=== PATIENT | female | born 1985 | race Caucasian/White ===

== ENCOUNTER 2016-10-08 04:51 | Emergency (ER) | payer MEDICAID ==
[~2016-10-08] VITALS: Ht 165.1 cm; Wt 80.0 kg
[~2016-10-08 04:51] MED LIST: CYCL-259 PO; ECHI500C PO; HYDR-3241 PO; IBUP-1221 PO; LAMO200T PO; LORA1TAB PO; ZOLP10TA5 PO
[2016-10-08 04:55] VITALS: BP 141/85
== END 2016-10-08 07:55 | disposition left against medical advice (07) ==
LOC: ED 05:17
DX: S63.521A Sprain of radiocarpal joint of right wrist, initial encounter (principal); Z88.2 Allergy status to sulfonamides; X50.9XXA Other and unspecified overexertion or strenuous movements or postures, initial encounter; Y93.89 Activity, other specified; Y92.098 Other place in other non-institutional residence as the place of occurrence of the external cause; Y99.8 Other external cause status
CPT/HCPCS: 99284